=== PATIENT | male | born 1995 | race African-American/Black ===

== ENCOUNTER 2020-07-21 12:23 | Emergency (ER) | payer OTHER ==
[2020-07-21 12:30] VITALS: BP 128/73; PULSE 84; TEMP 98.5; BMI 20.6
[2020-07-21] MEDS ORDERED: MAG HYDROX/AL HYDROX/SIMETH 30 ML UNIT-DOSE CUP PO ONE (12:52)
[2020-07-21] MEDS ORDERED: FAMOTIDINE 20 MG/50 ML IVPB 20 MG in PREMIX 50 IVPB ONE (12:52)
[2020-07-21] MEDS ORDERED: SODIUM CHLORIDE 1,000 ML IV ONE (12:52)
[2020-07-21] MEDS ORDERED: ONDANSETRON 4 MG/2 ML VIAL ONE (13:00)
[2020-07-21] MEDS ORDERED: MAG HYDROX/AL HYDROX/SIMETH 30 ML UNIT-DOSE CUP ONE (13:00)
[2020-07-21] MEDS ORDERED: ONDANSETRON 4 MG/2 ML VIAL IVPB ONE (13:00)
[2020-07-21] MEDS ORDERED: FAMOTIDINE 20 MG/50 ML IVPB 20 MG/50 ML MG IVPB ONE (13:00)
--- NOTE | 2020-07-21 13:00 | PDOC ---
History of Present Illness - General Chief Complaint: Nausea/Vomiting Stated Complaint: NAUSEA, VOMITING Time Seen by Provider: 07/21/20 12:49 History Source: Patient Exam Limitations: No Limitations - History of Present Illness Travel History: No Initial Comments: 07/21/20 12:53 25y M hx of asthma presents with complaint of epgiastric pain, n/v. Pt States that he was in his usual state of health until last night last night he was out celebrating, had a lot of tequila, since then he has been having some epigastric discomfort associated with nonbilious nonbloody vomiting. Denies any fever, chills, melena, BPR, Dysuria, cp, sob, leone. Sx: no abdomenal surgeries socia: social etoh, marijana, denies cigarrette smoking or other recreatiaonl drugs. ROS: Constitutional - no reported Fever, Chills, HEENT: no reported vision changes, sore throat Respiratory: no reported cough, sob, hemoptysis Cardiac: no reported chest pain, palpitations, light headedness, leg swelling Abd/GI: +abd pain, nausea, vomiting, no reported blood per rectum, melena, diarrhea : no reported dysuria, frequency, discharge Musculskelatal - no reported back pain, joint swelling skin - no reported bruising, erythema, rash neurological: no reported headache, numbness, focal weakness, tingling, ataxia, hematologic: no reported easy bruising, easy bleeding Exam: GENERAL: The patient is awake, alert, and fully oriented, Nontoxic - in no acute distress. HEAD: Normocephalic, atraumatic. EYES: extraocular movements intact, sclera anicteric, conjunctiva clear. ENT: Normal voice, dry mucous membranes. NECK: Normal range of motion, supple LUNGS: Breath sounds equal, clear to auscultation bilaterally. No wheezes, no rhonchi, no rales. HEART: Regular rate and rhythm, normal S1 and S2 without murmur, rub or gallop. ABDOMEN: Soft, nontender, No guarding, no rebound. No CVA tenderness EXTREMITIES: Normal range of motion, no edema. NEUROLOGICAL: No facial assymetry, Normal speech, PSYCH: Normal mood, normal affect. SKIN: Warm, Dry, normal turgor, likely gastritis, possible etoh related will give pepcid/maalox for sx relief zofran/fluids will ck basic labs to r/o anemia, metabolic derangem,ent,. pancreatitis will reasesss Past History - Medical History Allergies/Adverse Reactions: Allergies Allergy/AdvReac Type Severity Reaction Status Date / Time shellfish derived Allergy Mild Swelling Verified 07/21/20 12:24 Home Medications: Ambulatory Orders Albuterol Sulfate Inhaler - [Ventolin Hfa *Inhaler*] 1 - 2 inh IH QID 09/07/12 Asthma: Yes COPD: No - Immunization History Immunization Up to Date: Yes - Psycho-Social/Smoking History Smoking Status: No Smoking History: Current some day smoker Have you smoked in the past 12 months: Yes Number of Cigarettes Smoked Daily: 1 Information on smoking cessation initiated: Yes - Substance Abuse Hx (Audit-C & DAST Scrn) How often the patient has a drink containing alcohol: Monthly or less Score: In Men: 4 or > Positive; In Women: 3 or > Positive: 1 Screen Result (Pos requires Nsg. Audit-10AR): Negative In the last yr the pt used illegal drug/Rx for NonMed reason: No Score: Yes response is considered Positive: 0 Screen Result (Positive result requires Nsg. DAST-10): Negative *Physical Exam - Vital Signs Last Vital Signs Temp Pulse Resp BP Pulse Ox 98.5 F 84 18 128/73 100 07/21/20 12:23 07/21/20 12:23 07/21/20 12:23 07/21/20 12:23 07/21/20 12:23 ED Treatment Course - LABORATORY CBC & Chemistry Diagram: 07/21/20 13:00 07/21/20 13:00 Medical Decision Making - Medical Decision Making 07/21/20 14:41 pt feeling significantly improved abd soft nontender labs reviewed noted fo rleukocytosis, suspect this may be reactive due to his vomiting/dehydration no current abd pain, tolerated oral intake i do not think that furthe rimaging is necessary as he is feeling significantlyimproved wwithout any pain will dc with supportive care at home retur precautions were discussed I discussed the physical exam findings, ancillary test results and final diagnoses with the patient. I answered all of the patient's questions. The patient was satisfied with the care received and felt comfortable with the discharge plan and treatment plan. The patient will call their primary care physician within 24 hours to arrange follow-up and will return to the Emergency Department with any new, persistent or worsening symptoms. Discharge - Discharge Information Problems reviewed: Yes Clinical Impression/Diagnosis: Gastritis, alcoholic Qualifiers: Chronicity: acute Gastritis bleeding: without bleeding Qualified Code(s): K29.20 - Alcoholic gastritis without bleeding Condition: Stable Disposition: HOME - Admission No - Follow up/Referral Referrals: Radhames Kimbrough MD [Primary Care Provider] - - Patient Discharge Instructions Patient Printed Discharge Instructions: DI for Gastritis Additional Instructions: Return to the emergency department immediately with ANY new, persistent or worsening symptoms. You may take Pepcid or Maalox as needed for any abdominal discomfort. If you have worsening pain, vomiting, or unable to tolerate oral intake, fevers or chills return for further evaluation You MUST call and follow up with your doctor within the next 4-5 days for further evaluation of your symptoms. Results were discussed with you. Please make sure your doctor reviews the results of your emergency evaluation. Your Emergency Department visit is not complete without a follow up with your doctor. Print Language: S[place] - Post Discharge Activity
[2020-07-21 13:40] LABS: ALBUMIN 4.9 g/dl (3.4-5.0); BILIRUBIN,TOTAL 1.4 mg/dl (0.2-1); CREATININE 1.2 mg/dl (0.55-1.3); POTASSIUM 4.5 mmol/L (3.5-5.1); TOT PROT 8.2 g/dl (6.4-8.2)
[2020-07-21 14:07] LABS: BASO % 2.7 % (0-2.0); HEMATOCRIT 44.5 % (35.4-49); HEMOGLOBIN 14.8 GM/dl (11.7-16.9); LYMPH % 8.7 % (8-40); MCH 30.7 pg (25.7-33.7); MCHC 33.4 g/dl (32.0-35.9); MEAN PLT VOLUME 8.4 fl (7.5-11.1); MONO % 2.8 % (3.8-10.2); NEUT % 85.8 % (42.8-82.8); PLATELET COUNT 218 K/MM3 (134-434); RBC 4.83 M/mm3 (4.00-5.60); RDW 12.6 % (11.9-15.9); WHITE BLOOD COUNT 14.9 K/mm3 (4.0-10.8)
== END 2020-07-21 14:55 | disposition home or self-care (01) ==
LOC: FER 12:23
PROC: 3E033NZ Introduction of Analgesics, Hypnotics, Sedatives into Peripheral Vein, Percutaneous Approach (ICD-10-PCS; principal; 2020-07-21)
PROC: 3E033GC Introduction of Other Therapeutic Substance into Peripheral Vein, Percutaneous Approach (ICD-10-PCS; 2020-07-21)
PROC: 3E0337Z Introduction of Electrolytic and Water Balance Substance into Peripheral Vein, Percutaneous Approach (ICD-10-PCS; 2020-07-21)
DX: K29.20 Alcoholic gastritis without bleeding (principal)
CPT/HCPCS: 36415; 80053; 83690; 85025; 99285-25